=== PATIENT | male | born 1965 | race Caucasian/White ===

== ENCOUNTER 2018-04-01 19:45 | Emergency (ER) | payer OTHER ==
[2018-04-01] MEDS ORDERED: PROPARACAINE 0.5% 15 ML OPHT DROP ONE (20:01)
--- NOTE | 2018-04-01 20:31 | EDPHY ---
H & P Time Seen by Provider: 04/01/18 20:07 HPI/ROS: CHIEF COMPLAINT: Right eye visual change HISTORY OF PRESENT ILLNESS: Patient is a 52-year-old male with no past medical history presents emergency department with visual change. The patient's knees and had a sudden onset of visual change in his right eye. He initially noticed decreased vision in his lower visual field. This was initially"clear."It then became opacified. The patient can now only see the upper aspect of his visual field in the right eye. He has no pain. No nausea or vomiting. No previous retinal surgery. REVIEW OF SYSTEMS: My complete review of systems is negative except as mentioned in the HPI. Past Medical/Surgical History: Negative Smoking Status: Never smoked Physical Exam: Vitals noted GENERAL: Well-appearing, in no acute distress, alert. Visual acuity: Noted. Patient has clear vision in the upper visual rojas. No vision in the lower visual rojas Eyelids: Normal inspection, everted for exam. Conjunctiva and sclera: Normal inspection. No foreign material. No subconjunctival hemorrhage. No exudate. Not injected. Corneas: Normal inspection. Examined with fluorescein dye: No uptake, abrasion, or ulcer. EOMs: Intact. Pupils: PERRL, normal accommodation. Anterior chambers: Normal inspection. No hyphema. No cells or flare. Posterior segments: The patient has an abnormal funduscopic exam on the right. He appears to have a retinal detachment superiorly Constitutional: Initial Vital Signs Temperature (C) 36.6 C 04/01/18 19:47 Heart Rate 95 04/01/18 19:47 Respiratory Rate 18 04/01/18 19:47 Blood Pressure 152/95 H 04/01/18 19:47 O2 Sat (%) 97 04/01/18 19:47 O2 Delivery Mode Room Air Allergies/Adverse Reactions: bee venom protein (honey bee) Allergy (Verified 04/01/18 19:48) Home Medications: Medication Instructions Recorded NK [No Known Home Meds] 04/01/18 Medical Decision Making ED Course/Re-evaluation: In the emergency department I met the patient on arrival. I discussed my physical exam findings with the patient. 2017: Ophthalmology paged. I discussed case with Dr. Vazquez. He recommend contacting Dr. Chin. 2021: I discussed the case with Dr. Chin. I explained my physical exam findings. She recommended the patient be seen in office tomorrow morning. She did not feel the need to be seen tonight. She instructed the patient to be discharged home and to lay flat. I performed a bedside ultrasound. This appeared to show retinal detachment. I discussed the results with the patient. I answered all his questions. He was given warnings prior to leaving. Differential Diagnosis: My differential includes but is not limited to retinal detachment, vitreal detachment, vitreal hemorrhage, hyphema Departure - Departure Disposition: Home, Routine, Self-Care Clinical Impression: Retinal detachment Qualifiers: Laterality: right Qualified Code(s): H33.21 - Serous retinal detachment, right eye Condition: Good Instructions: Surgery for Retinal Detachment (DC) Additional Instructions: I am concerned that you have a retinal detachment. This will need close follow- up with Ophthalmology. You been given contact for Dr. Chin. Call first thing tomorrow morning to make an appointment to be seen tomorrow. Return with worsening symptoms or any other concerns. Referrals: Debbie Field MD [Non Staff Provider (MD)] - 1 day without fail
[2018-04-01 21:30] VITALS: BP 133/74
== END 2018-04-01 21:59 | disposition home or self-care (01) ==
DX: H33.21 Serous retinal detachment, right eye (principal)